=== PATIENT | male | born 1995 | race African-American/Black ===

== ENCOUNTER 2017-05-25 10:06 | Emergency (ER) | payer OTHER ==
[~2017-05-25] VITALS: Ht 185.4 cm; Wt 117.0 kg
[2017-05-25 10:49] VITALS: BP 147/85
[2017-05-25] MEDS ORDERED: KETOROLAC TROMETH 60MG/2ML VIAL IM ONE (11:30)
== END 2017-05-25 12:49 | disposition home or self-care (01) ==
LOC: ER 10:22
DX: S29.012A Strain of muscle and tendon of back wall of thorax, initial encounter (principal); S39.012A Strain of muscle, fascia and tendon of lower back, initial encounter; W19.XXXA Unspecified fall, initial encounter; Y93.89 Activity, other specified; Y92.89 Other specified places as the place of occurrence of the external cause; Y99.8 Other external cause status
CPT/HCPCS: 72070; 72100; 96372; 99284; J1885

== ENCOUNTER 2019-05-21 12:25 | Emergency (ER) | payer MEDICAID ==
[~2019-05-21] VITALS: Ht 188 cm; Wt 120.2 kg
[2019-05-21] MEDS ORDERED: LIDOCAINE 2% JELLY 11ml (GLYDO) UR ONE (13:45)
[2019-05-21 15:49] LABS: Urine Bacteria NONE SEEN /hpf (None Seen); Urine Blood Negative /uL (Negative); Urine Specific Gravity 1.016 (1.001-1.035); Urine WBC <1 /hpf (0 - 3)
[2019-05-21 16:00] VITALS: BP 148/101
== END 2019-05-21 15:51 | disposition home or self-care (01) ==
LOC: MERGE 12:25 → ER 12:25
DX: N39.0 Urinary tract infection, site not specified (principal); R33.9 Retention of urine, unspecified
CPT/HCPCS: 81001

== ENCOUNTER 2019-07-23 14:23 | Emergency (ER) | payer MEDICAID ==
[~2019-07-23] VITALS: Ht 188 cm; Wt 113.4 kg
[2019-07-23 15:41] VITALS: BP 131/89
[2019-07-23] MEDS ORDERED: ENOXAPARIN SOD 100 MG/1 ML SYRINGE SC ONE (16:15)
== END 2019-07-23 19:20 | disposition home or self-care (01) ==
LOC: ER 14:31
DX: I82.412 Acute embolism and thrombosis of left femoral vein (principal)
CPT/HCPCS: 93971; 96372; 99284; J1650

== ENCOUNTER 2019-07-26 13:02 | Inpatient (IN) | payer MEDICAID ==
[~2019-07-26] VITALS: Ht 188 cm; Wt 126.7 kg
[2019-07-26] MEDS ORDERED: SODIUM CHLORIDE 0.9% 1,000 ML IV ONE ×2 (15:24)
[2019-07-26 16:00] LABS: Basophils # (auto) 0 uL; Basophils % (auto) 0.5 % (0.0-2.0); Eosinophils # (auto) 0 uL; Lymphocytes # (auto) 1.4 uL; Monocytes # (auto) 0.5 uL
[2019-07-26 16:01] LABS: Eosinophils % (auto) 0.7 % (0.0-7.0); Hematocrit 48.7 % (41.0-53.0); Hemoglobin 16.2 g/dL (13.5-17.5); Lymphocytes % (auto) 23.5 % (10.0-50.0); Mean Corpuscular Hemoglobin 27.6 pg (28.0-32.0); Mean Corpuscular Hgb Conc. 33.3 g/dL (32.0-36.0); Monocytes % (auto) 8.1 % (0.0-12.0); Neutrophils # (auto) 4.1 uL; Neutrophils % (auto) 67.2 % (37.0-80.0); Nucleated Red Blood Cells % 0.1 %; Platelet Count (auto) 236 10^3/uL (140-450); Red Blood Cells 5.86 10^6/uL (4.5-5.90); Red Cell Distribution Width 14.4 % (11.8-14.3)
[2019-07-26 16:19] LABS: Alanine Aminotransferase 74 U/L (16-61); Albumin 3.7 g/dL (3.4-5.0); Anion Gap 7 (5-15); Aspartate Aminotransferase 33 U/L (15-37); BUN/Creatinine Ratio 12.9; Blood Urea Nitrogen 15 mg/dL (7-18); Calcium 8.7 mg/dL (8.5-10.1); Carbon Dioxide 23 mmol/L (21-32); Chloride 110 mmol/L (98-107); GFR African American 99 mL/min; GFR Non-African American 82 mL/min; Glucose 88 mg/dL (74-106); Sodium 140 mmol/L (136-145)
[2019-07-26 16:24] LABS: Alkaline Phosphatase 83 U/L (45-117); Bilirubin, Total 0.4 mg/dL (0.2-1.0); Total Protein 7.3 g/dL (6.4-8.2)
[2019-07-26] MEDS ORDERED: ENOXAPARIN SOD 120 MG/0.8 ML SYRINGE SC ONE (16:30)
[2019-07-26] MEDS ORDERED: IOHEXOL 350 MG/ML 100ML IJ ONE (16:40)
[2019-07-26 18:54] LABS: Urine Bacteria NONE SEEN /hpf (None Seen); Urine Blood Negative /uL (Negative); Urine WBC 1 /hpf (0 - 3)
[2019-07-26 19:07] LABS: Urine Specific Gravity > 1.050 (1.001-1.035)
[2019-07-26] MEDS ORDERED: NITROGLYCERIN 0.4 MG SL TAB SL PRN (20:00)
[2019-07-26] MEDS ORDERED: TEMAZEPAM 15 MG CAP PO PRN (20:00)
[2019-07-26] MEDS ORDERED: PROMETHAZINE HCL 25 MG/ML 1ML IV PRN (20:00)
[2019-07-26] MEDS ORDERED: LACTULOSE 20Gm/30ML SOLN PO PRN (20:00)
[2019-07-26] MEDS ORDERED: ACETAMINOPHEN 500 MG TAB PO PRN (20:00)
[2019-07-26] MEDS ORDERED: traMADol HCL 50 MG TAB PO PRN (20:00)
[2019-07-26] MEDS ORDERED: MORPHINE SULF INJ 2 MG/ML SYRINGE 1ML IV PRN (20:00)
[2019-07-26 22:00] VITALS: BP 138/86
[2019-07-26] MEDS ORDERED: RIV20T PO (22:43)
[2019-07-27] MEDS ORDERED: ENOXAPARIN SOD 60 MG/0.6 ML SYRINGE SC SCH (04:30)
[2019-07-27 05:00] VITALS: BP 134/71
[2019-07-27 08:00] VITALS: BP 153/94
[2019-07-27 08:49] VITALS: BP 153/94
[2019-07-27 11:53] VITALS: BP 153/94
== END 2019-07-27 12:30 | disposition home or self-care (01) | DRG 197 ==
LOC: ER 13:02 → TELE 13:03 → TELE-WESTW 21:18
PROVIDERS: ADMIT Internal Medicine; ATTEND Internal Medicine
DX: I82.412 Acute embolism and thrombosis of left femoral vein (principal); E66.9 Obesity, unspecified; I10 Essential (primary) hypertension; I82.402 Acute embolism and thrombosis of unspecified deep veins of left lower extremity; Z85.9 Personal history of malignant neoplasm, unspecified; Z68.35 Body mass index [BMI] 35.0-35.9, adult
CPT/HCPCS: 36415; 71046; 71275; 80053; 81001; 81241; 84484; 85025; 85302; 85305; 85306; 85613; 85670; 85705; 85732; 93970; 96360; 96372; G0378

== ENCOUNTER 2023-04-13 23:53 | Emergency (ER) | payer MEDICAID ==
[~2023-04-13] VITALS: Ht 188 cm; Wt 133.0 kg
[~2023-04-13 23:53] MED LIST: RIV20T PO
[2023-04-14 00:57] VITALS: BP 146/95; PULSE 68; RESP 18; O2SAT 98
== END 2023-04-14 04:33 | disposition left against medical advice (07) ==
LOC: ER 23:53
DX: Z76.0 Encounter for issue of repeat prescription (principal); Z53.21 Procedure and treatment not carried out due to patient leaving prior to being seen by health care provider

== ENCOUNTER 2023-06-18 08:56 | Emergency (ER) | payer MEDICAID ==
[~2023-06-18] VITALS: Ht 188 cm; Wt 129.0 kg
[2023-06-18 10:03] LABS: Basophils # (auto) 0 10 ^3/uL (0-0.2); Eosinophils # (auto) 0 10 ^3/uL (0-0.8); Eosinophils % (auto) 0.1 % (0.0-7.0); Hemoglobin 17.2 g/dL (13.5-17.5); Lymphocytes # (auto) 0.5 10 ^3/uL (0.4-5.4); Monocytes % (auto) 6.1 % (0.0-12.0); Neutrophils % (auto) 87.4 % (37.0-80.0); Red Cell Distribution Width 14.7 % (11.8-14.3)
[2023-06-18 10:07] LABS: Basophils % (auto) 0.2 % (0.0-2.0); Hematocrit 51.7 % (41.0-53.0); Lymphocytes % (auto) 6.2 % (10.0-50.0); Mean Corpuscular Hemoglobin 27.5 pg (28.0-32.0); Mean Corpuscular Hgb Conc. 33.3 g/dL (32.0-36.0); Mean Corpuscular Volume 82.8 fL (80.0-100.0); Monocytes # (auto) 0.4 10 ^3/uL (0-1.3); Neutrophils # (auto) 6.4 10 ^3/uL (1.6-8.6); Nucleated Red Blood Cells % 0.1 %; Red Blood Cells 6.24 10^6/uL (4.5-5.90); White Blood Cell 7.3 10^3/uL (4.4-10.8)
[2023-06-18 10:10] LABS: Chloride 103 mmol/L (98-107); Potassium 3.5 mmol/L (3.5-5.1); Sodium 136 mmol/L (136-145)
[2023-06-18 10:11] LABS: Anion Gap 10 (5-15); Carbon Dioxide 23 mmol/L (20-30)
[2023-06-18 10:12] LABS: Calcium 9.7 mg/dL (8.5-10.1)
[2023-06-18 10:16] LABS: BUN/Creatinine Ratio 7.4 (10.0-20.0); Blood Urea Nitrogen 9 mg/dL (9-23); Glucose 141 mg/dL (74-106)
[2023-06-18] MEDS ORDERED: HYDROcodone-ACET 10/325MG TAB PO ONE (10:30)
[2023-06-18] MEDS ORDERED: METR-344 PO (10:42)
[2023-06-18] MEDS ORDERED: SODIUM CHLORIDE 0.9% 1,000 ML IV ONE (10:45)
[2023-06-18] MEDS ORDERED: cefTRIAXone 1GM/50ML D5W 50 ML IV ONE (10:45)
[2023-06-18] MEDS ORDERED: metroNIDAZOLE 500MG/100ML 100 ML IV ONE (10:45)
[2023-06-18] MEDS ORDERED: KETOROLAC TROMETH 30 MG/ML 1ML VIAL IV ONE (11:15)
[2023-06-18 12:17] VITALS: BP 152/97; PULSE 79; RESP 18; TEMP 98; O2SAT 97
== END 2023-06-18 12:18 | disposition home or self-care (01) ==
LOC: ER 08:56
DX: K52.9 Noninfective gastroenteritis and colitis, unspecified (principal)
CPT/HCPCS: 36415; 74018; 80048; 85025; 96365; 96368; 96375; 99284; J0696; J1885; J3490; J7030

== ENCOUNTER 2023-07-04 22:29 | Emergency (ER) | payer MEDICAID ==
[~2023-07-04] VITALS: Ht 188 cm; Wt 129.1 kg
[~2023-07-04 22:29] MED LIST changes: +METR-344 PO
[2023-07-04 22:40] VITALS: BP 128/69; PULSE 60; RESP 18; TEMP 98; O2SAT 98
== END 2023-07-05 00:14 | disposition home or self-care (01) ==
LOC: ER 22:29
DX: R51.9 Headache, unspecified (principal)

== ENCOUNTER 2023-07-21 13:13 | Emergency (ER) | payer MEDICAID ==
[~2023-07-21] VITALS: Ht 188 cm; Wt 130.3 kg
[2023-07-21 14:18] VITALS: BP 110/75; PULSE 91; RESP 16; TEMP 98.9; O2SAT 96
[2023-07-21] MEDS ORDERED: BENZ100C97 PO (15:58)
[2023-07-21] MEDS ORDERED: GUAISYP6 PO (16:11)
[2023-07-21] MEDS ORDERED: OSEL75CA5 PO (16:11)
[2023-07-21 17:09] LABS: COVID19 ANTIGEN SOFIA FIA NEGATIVE (NEGATIVE)
[2023-07-21 17:10] LABS: Rapid Influenza A Negative (Negative); Rapid Influenza B Negative (Negative)
== END 2023-07-21 16:16 | disposition home or self-care (01) ==
LOC: ER 13:13
DX: J06.9 Acute upper respiratory infection, unspecified (principal); I10 Essential (primary) hypertension; Z20.822 Contact with and (suspected) exposure to COVID-19
CPT/HCPCS: 36415; 87426; 87804

== ENCOUNTER 2024-08-03 15:55 | Emergency (ER) | payer MEDICAID ==
[~2024-08-03] VITALS: Ht 188 cm; Wt 132.9 kg
[~2024-08-03 15:55] MED LIST changes: +BENZ100C97 PO; +OSEL75CA5 PO
--- NOTE | 2024-08-03 16:52 | DVH ---
Left lower extremity venous duplex Clinical History: pain Comparison: L VENOUS DVT LTD UNILATERAL on DOS: 07/23/19 Findings: Duplex Doppler evaluation of the deep venous system of the left lower extremity from the common femor al vein to the popliteal vein including color Doppler and spectral/pulsed waveform analysis was perfo rmed. The common femoral vein demonstrates appropriate compressibility and waveform variability. There is compressibility/patency of the great saphenous vein at the proximal thigh. The femoral vein demonstrates appropriate compressibility and waveform variability. The deep femoral vein demonstrates appropriate compressibility and waveform variability. Thrombus in the popliteal vein extending to the posterior tibial vein. Impression: Left lower extremity DVT. Critical findings discussed with Dr. Menchaca at the time of dictation. If clinical concern/symptoms persist or worsen, short-interval follow-up study is suggested.
[2024-08-03] MEDS ORDERED: RIVA15TA PO (16:56)
--- NOTE | 2024-08-03 16:58 | ED.PDOC ---
Musculoskeletal HPI Comments 29-year-old male complaining of left lower leg pain. Patient reports a history of DVTs. States he just recently returned from a long drive from [place] to [place]. [facility] he did try to get up and move his foot and legs when he could. [facility] he had DVT last year and then he went through thrombectomy on the left side. [facility] he stopped taking Xarelto per directed by his doctor last year. Patient denies any chest pain no shortness a breath. Chief Complaint: Lower Extremity Time Seen by MD: 16:06 Primary Care Provider: OOA Reviewed Notes: Nurses Notes Allergies: Coded Allergies: No Known Drug Allergy (Verified Allergy, Unknown, 07/26/19) Uncoded Allergies: UNKNOWN ANTIBIOTIC (Allergy, Unknown, 04/14/23) Home Meds Active Scripts Oseltamivir Phosphate (Tamiflu) 75 Mg Cap, 1 CAP PO BID for 5 Days, #10 CAP Prov:IVETTE SYKES 07/21/23 Benzonatate (Benzonatate) 100 Mg Cap, 1 CAP PO TID PRN, #30 CAP Prov:IVETTE SYKES 07/21/23 Metronidazole (Flagyl) 500 Mg Tab, 1 TAB PO TID for 7 Days, #21 TAB Prov:QUYNH CARBAJAL MD 06/18/23 Reported Medications Rivaroxaban (Xarelto Tablet) 20 Mg Tb, 20 MG PO BID, TAB 07/26/19 Information Source: Patient Mode of Arrival: Ambulatory Location: Left Past Medical History PAST MEDICAL HISTORY: HTN Surgical History: Denies all surgeries Family History Family History: Reviewed,noncontributory to illness Social History Smoker: Non-Smoker Alcohol: Denies ETOH Use Drugs: Denies Drug Use Lives In: Home Constitutional: denies: chills, diaphoresis, fatigue, fever, malaise, sweats, weakness, others EENTM: denies: blurred vision, double vision, ear bleeding, ear discharge, ear drainage, ear pain, ear ringing, eye pain, eye redness, hearing loss, mouth pain, mouth swelling, nasal discharge, nose bleeding, nose congestion, nose pain, photophobia, tearing, throat pain, throat swelling, voice changes, others Respiratory: denies: cough, hemoptysis, orthopnea, SOB at rest, shortness of breath, SOB with excertion, stridor, wheezing, others Cardiovascular: denies: chest pain, dizzy spells, diaphoresis, Dyspnea on exertion, edema, irregular heart beat, left arm pain, lightheadedness, palpitations, PND, syncope, others Gastrointestinal: denies: abdomen distended, abdominal pain, blood streaked bowels, constipated, diarrhea, dysphagia, difficulty swallowing, hematemesis, melena, nausea, poor appetite, poor fluid intake, rectal bleeding, rectal pain, vomiting, others Genitourinary: denies: burning, dysuria, flank pain, frequency, hematuria, incontinence, penile discharge, penile sore, pain, testicle pain, testicle swelling, urgency, others Neurological: denies: dizziness, fainting, headache, left sided numbness, left sided weakness, numbness, paresthesia, pre-existing deficit, right sided num bness, right sided weakness, seizure, speech problems, tingling, tremors, weakness, others Musculoskeletal: reports: muscle pain, muscle stiffness; denies: back pain, gout, joint pain, joint swelling, neck pain, others Integumetry: denies: bruises, change in color, change in hair/nails, dryness, l aceration, lesions, lumps, rash, wounds, others Allergic/Immunocompromised: denies: Difficulty Healing, Frequent Infections, Hives, Itching, others Hematologic/Lymphatic: denies: anemia, blood clots, easy bleeding, easy bruising, swollen glands, others Physical Exam General Appearance: No Apparent Distress, Normal HEENT: Normal ENT Inspection, Pharynx Normal, TMs Normal Neck: Full Range of Motion, Non-Tender, Normal, Normal Inspection Respiratory: Chest Non-Tender, Lungs Clear, No Accessory Muscle Use, No Respiratory Distress, Normal Breath Sounds Cardiovascular: No Edema, No JVD, No Murmur, No Gallop, Normal Peripheral Pulses, Regular Rate/Rhythm Breast Exam: Deferred Gastrointestinal: No Organomegaly, Non Tender, No Pulsatile Mass, Normal Bowel Sounds, Soft Genitalia: Deferred Pelvic: Deferred Rectal: Deferred Extremities: No calf tenderness, Normal capillary refill, No pedal edema, Swelling (Swelling noted left lower extremity, distal pulse not present. Patient reports tenderness to palpation over the left calf.) Musculoskeletal : Apperance: Normal Neurologic: Alert, emergency operator II-XII nml as Tested, No Motor Deficits, Normal Affect, Normal Mood, No Sensory Deficits Cerebellar Function: Normal Reflexes: Normal Skin: Dry, Normal Color, Warm Lymphatic: No Adenopathy Was a procedure done? Was a procedure done?: No Differential Diagnosis EXT Differential Diagnosis: Deep Vein Thrombosis, Compartment Syndrome, Fracture, Sprain, Dislocation X-Ray, Labs, Meds, VS Vital Signs Date Time Temp Pulse Resp B/P (MAP) Pulse Ox O2 Delivery O2 Flow Rate FiO2 08/03/24 16:07 98.7 74 18 159/101 (120) 95 157/96 (116) X-Ray, Labs, Meds, VS Comment Imaging: X-rays and CT scans were reviewed and interpreted by this provider, imaging shows no fractures and no pathological disease. Pending radiology review. Ultrasound: DVT noted in the left popliteal and trifurcation of left lower extremity Laboratory: Labs reviewed and interpreted by this provider. No significant abnormalities noted. Patient has prior medical visits reviewed. Med reconciliation performed Vital signs reviewed Time of 1ST Reevaluation: 16:58 Reevaluation 1ST: Improved Patient Education/Counseling: Diagnosis, Treatment, Need For Follow Up (Patient advised to follow-up in the emergency room in the next 24 to 48 hours if symptoms do not improve. Advised follow-up with PCP in the next 3 to 5 days. Patient verbalized understanding. ) Family Education/Counseling: Diagnosis Departure 1 Departure Time of Disposition: 16:54 Impression: Primary Impression: DVT (deep venous thrombosis) Qualified Codes: I82.4Z2 - Acute embolism and thrombosis of unspecified deep veins of left distal lower extremity Disposition: 01 HOME / SELF CARE / HOMELESS Condition: Fair e-Prescriptions Rivaroxaban (XARELTO) 15 Mg Tab 15 MG PO BID for 30 Days, #60 TAB Prov: ARTEM PEREZ 08/03/24 Discharged With: Self Critical Care Note Critical Care Time?: No Stability Stability form required: No Heart Score Heart Score: Heart Score Response (Comments) Value History N/A 0 EKG N/A 0 Age N/A 0 Risk Factors N/A 0 Troponin N/A 0 Total 0 ARTEM PEREZ Aug 03, 2024 16:58
[2024-08-03 17:22] VITALS: BP 151/104; PULSE 68; RESP 17; TEMP 97.7; O2SAT 98
== END 2024-08-03 17:27 | disposition home or self-care (01) ==
LOC: ER 15:55
DX: I82.4Z2 Acute embolism and thrombosis of unspecified deep veins of left distal lower extremity (principal); I10 Essential (primary) hypertension; Z79.01 Long term (current) use of anticoagulants; Z79.899 Other long term (current) drug therapy
CPT/HCPCS: 93971

== ENCOUNTER 2024-12-16 00:42 | Emergency (ER) | payer MEDICAID ==
[~2024-12-16] VITALS: Ht 188 cm; Wt 134.0 kg
[~2024-12-16 00:42] MED LIST changes: +RIVA15TA PO
[2024-12-16] MEDS ORDERED: ACET500T58 PO (01:03)
--- NOTE | 2024-12-16 01:04 | ED.PDOC ---
HPI (NEURO) HPI Comments 29 year old male presents to ER with complaints of headache x 1 day. Patient with PMH significant for HTN states he started experiencing 7/10 frontal headache at 7 p.m. prior to arrival to ER while driving. He notes he thought his headache was related to his blood pressure, denying checking his blood pressure prior to arrival to ER. Patient presents to ER alert and oriented x4, with steady gait, in no distress with blood pressure 134/94 and notes he did take his prescribed blood pressure medications at onset of symptoms. Denies n/v, numbness/tingling, dizziness, vision changes, head injury, extremity weakness, fever, runny nose, shortness of breath, chest pain or any further symptoms/complaints Time Seen by MD: 00:48 Primary Care Provider: ANGELO Reviewed Notes: Nurses Notes, Medications, Allergies Information Source: Patient Past Medical History PAST MEDICAL HISTORY: HTN Past Medical History (Other): DVT Surgical History: Denies all surgeries Family History Family History: Unknown Social History Smoker: Non-Smoker Alcohol: Denies ETOH Use Drugs: Denies Drug Use Lives In: Home Constitutional: denies: chills, diaphoresis, fatigue, fever, malaise, sweats, weakness, others EENTM: denies: blurred vision, double vision, ear bleeding, ear discharge, ear drainage, ear pain, ear ringing, eye pain, eye redness, hearing loss, mouth pain, mouth swelling, nasal discharge, nose bleeding, nose congestion, nose pain, photophobia, tearing, throat pain, throat swelling, voice changes, others Respiratory: denies: cough, hemoptysis, orthopnea, SOB at rest, shortness of breath, SOB with excertion, stridor, wheezing, others Cardiovascular: denies: chest pain, dizzy spells, diaphoresis, Dyspnea on exertion, edema, irregular heart beat, left arm pain, lightheadedness, palpitations, PND, syncope, others Gastrointestinal: denies: abdomen distended, abdominal pain, blood streaked bowels, constipated, diarrhea, dysphagia, difficulty swallowing, hematemesis, melena, nausea, poor appetite, poor fluid intake, rectal bleeding, rectal pain, vomiting, others Genitourinary: denies: burning, dysuria, flank pain, frequency, hematuria, incontinence, penile discharge, penile sore, pain, testicle pain, testicle swelling, urgency, others Neurological: reports: others (As stated in HPI) Musculoskeletal: denies: back pain, gout, joint pain, joint swelling, muscle pain, muscle stiffness, neck pain, others Integumetry: denies: bruises, change in color, change in hair/nails, dryness, laceration, lesions, lumps, rash, wounds, others Allergic/Immunocompromised: denies: Difficulty Healing, Frequent Infections, Hives, Itching, others Hematologic/Lymphatic: denies: anemia, blood clots, easy bleeding, easy br uising, swollen glands, others Endocrine: denies: excessive hunger, excessive sweating, excessive thirst, excessive urination, flushing, intolerance to cold, intolerance to heat, unexplained weight gain, unexplained weight loss, others Psychiatric: denies: anxiety, bipolar disorder, depression, hopeless, panic disorder, schizophrenia, sleepless, suicidal, others Physical Exam General Appearance: No Apparent Distress, Obese HEENT: Normal ENT Inspection, PERRL/EOMI, Pharynx Normal, TMs Normal Neck: Full Range of Motion, Non-Tender, Normal Respiratory: Chest Non-Tender, Lungs Clear, No Accessory Muscle Use, No Respiratory Distress, Normal Breath Sounds Cardiovascular: No Murmur, No Gallop, Regular Rate/Rhythm Breast Exam: Deferred Gastrointestinal: NOT DONE Genitalia: Deferred Pelvic: Deferred Rectal: Deferred Extremities: Normal capillary refill, Normal range of motion Neurologic: Alert, home health aid II-XII nml as Tested, No Motor Deficits, Normal Affect, Normal Mood, No Sensory Deficits Cerebellar Function: Normal Reflexes: Normal Skin: Dry, Normal Color, Warm Lymphatic: No Adenopathy Was a procedure done? Was a procedure done?: No Sedation Sedation?: No Differential Diagnosis (SZ) Headache: Closed Head Injury, Subarachnoid Hemorrhage, Subdural Hemorrhage, Mass Lesion, Other (Hypertensive emergency) X-Ray, Labs, Meds, VS Vital Signs Date Time Temp Pulse Resp B/P (MAP) Pulse Ox O2 Delivery O2 Flow Rate FiO2 12/16/24 01:10 98.0 85 18 134/94 (107) 97 98.0 12/16/24 01:10 85 18 97 Room Air* 0 21 12/16/24 00:55 98.0 85 18 134/94 (107) 97 98.0 Neurological examination-unremarkable Patient had improvement in symptoms and in no distress prior to discharge Advised to monitor/record blood pressure readings closely at home Advised to continue blood pressure medications as prescribed Advised to follow up with PCP in 1-2 days Patient alert and oriented x4 prior to discharge. Patient verbalized understanding and agreeable with current plan of care Advised to return to ER immediately if symptoms worsen Time of 1ST Reevaluation: 00:44 Reevaluation 1ST: N/A Patient Education/Counseling: Diagnosis, Treatment, Prognosis, Need For Follow Up Family Education/Counseling: No Family Present Departure 1 Departure Time of Disposition: 01:02 Impression: Primary Impression: Tension headache Disposition: 01 HOME / SELF CARE / HOMELESS Condition: Stable e-Prescriptions Acetaminophen (Acetaminophen) 500 Mg Tab 500 MG PO Q4HPRN, #30 TAB 0 Refills Prov: BHUMI STALLINGS 12/16/24 Discharged With: Self Critical Care Note Critical Care Time?: No Stability Stability form required: No Heart Score Heart Score: Heart Score Response (Comments) Value History N/A 0 EKG N/A 0 Age N/A 0 Risk Factors N/A 0 Troponin N/A 0 Total 0 BHUMI STALLINGS Dec 16, 2024 01:04
[2024-12-16 01:10] VITALS: BP 134/94; PULSE 85; RESP 18; TEMP 98; O2SAT 97
== END 2024-12-16 01:22 | disposition home or self-care (01) ==
LOC: ER 00:42
DX: G44.209 Tension-type headache, unspecified, not intractable (principal); I10 Essential (primary) hypertension; Z86.718 Personal history of other venous thrombosis and embolism

== ENCOUNTER 2025-03-31 11:09 | Emergency (ER) | payer MEDICAID ==
[~2025-03-31] VITALS: Ht 190.5 cm; Wt 134.9 kg
[~2025-03-31 11:09] MED LIST changes: +ACET500T58 PO
[2025-03-31] MEDS ORDERED: RIV20T PO (12:26)
--- NOTE | 2025-03-31 12:32 | ED.PDOC ---
History of Present Illness HPI Comments A 30 YEAR OLD MALE PRESENTS TO THE ED WITH COMPLAINT OF MED REFILL. PT HAS HISTORY OF DVT AND IS CURRENTLY ON XARELTO 20 MG BID. PT STATES HE RAN OUT OF MEDICATION 3X DAYS AND NEEDS REFILL UNTIL HE CAN SEE HIS PCP. PATIENT DENIES FEVER, CHILLS, SHORTNESS OF BREATH, CHEST PAIN, ABDOMINAL PAIN, NAUSEA, VOMITI NG, HEADACHE, OR OTHER COMPLAINTS. NO OTHER SYMPTOMS OR MODIFYING FACTORS AT THIS TIME. PATIENT IS ALERT, ORIENTED X 4, AND HAS STEADY GAIT. Chief Complaint: Lower Extremity Time Seen by MD: 12:27 Primary Care Provider: OOA Reviewed Notes: Nurses Notes, Medications, Allergies Allergies: Coded Allergies: No Known Drug Allergy (Verified Allergy, Unknown, 07/26/19) Uncoded Allergies: UNKNOWN ANTIBIOTIC (Allergy, Unknown, 04/14/23) Home Meds Active Scripts Rivaroxaban (Xarelto Tablet) 20 Mg Tb, 20 MG PO BID, #40 TAB Prov:ERIN DOMINGUEZ 03/31/25 Acetaminophen (Acetaminophen) 500 Mg Tab, 500 MG PO Q4HPRN, #30 TAB 0 Refills Prov:BHUMI STALLINGS 12/16/24 Rivaroxaban (XARELTO) 15 Mg Tab, 15 MG PO BID for 30 Days, #60 TAB Prov:ARTEM PEREZ [facility] 08/03/24 Oseltamivir Phosphate (Tamiflu) 75 Mg Cap, 1 CAP PO BID for 5 Days, #10 CAP Prov:IVETTE SYKES [employer] 07/21/23 Benzonatate (Benzonatate) 100 Mg Cap, 1 CAP PO TID PRN, #30 CAP Prov:IVETTE SYKES [facility] 07/21/23 Metronidazole (Flagyl) 500 Mg Tab, 1 TAB PO TID for 7 Days, #21 TAB Prov:QUYNH CARBAJAL MD 06/18/23 Information Source: Patient Mode of Arrival: Ambulatory Severity: Mild, Moderate Timing: Hours Duration: Since onset Medication Refill: Ran out of Medication, For: Other (HX OF DVT ) Past Medical History PAST MEDICAL HISTORY: HTN Past Medical History (Other): DVT Surgical History: Denies all surgeries Family History Family History: Unknown Social History Smoker: Non-Smoker Alcohol: Denies ETOH Use Drugs: Denies Drug Use Lives In: Home Constitutional: denies: chills, diaphoresis, fatigue, fever, malaise, sweats, weakness, others EENTM: denies: blurred vision, double vision, ear bleeding, ear discharge, ear drainage, ear pain, ear ringing, eye pain, eye redness, hearing loss, mouth pain, mouth swelling, nasal discharge, nose bleeding, nose congestion, nose pain, photophobia, tearing, throat pain, throat swelling, voice changes, others Respiratory: denies: cough, hemoptysis, orthopnea, SOB at rest, shortness of breath, SOB with excertion, stridor, wheezing, others Cardiovascular: denies: chest pain, dizzy spells, diaphoresis, Dyspnea on exertion, edema, irregular heart beat, left arm pain, lightheadedness, palpitations, PND, syncope, others Gastrointestinal: denies: abdomen distended, abdominal pain, blood streaked bowels, constipated, diarrhea, dysphagia, difficulty swallowing, hematemesis, melena, nausea, poor appetite, poor fluid intake, rectal bleeding, rectal pain, vomiting, others Genitourinary: denies: burning, dysuria, flank pain, frequency, hematuria, incontinence, penile discharge, penile sore, pain, testicle pain, testicle swelling, urgency, others Neurological: denies: dizziness, fainting, headache, left sided numbness, left sided weakness, numbness, paresthesia, pre-existing deficit, right sided numbne ss, right sided weakness, seizure, speech problems, tingling, tremors, weakness, others Musculoskeletal: denies: back pain, gout, joint pain, joint swelling, muscle pain, muscle stiffness, neck pain, others Integumetry: denies: bruises, change in color, change in hair/nails, dryness, laceration, lesions, lumps, rash, wounds, others Allergic/Immunocompromised: denies: Difficulty Healing, Frequent Infections, Hives, Itching, others Hematologic/Lymphatic: denies: anemia, blood clots, easy bleeding, easy bruising, swollen glands, others Endocrine: denies: excessive hunger, excessive sweating, excessive thirst, excessive urination, flushing, intolerance to cold, intolerance to heat, unexplained weight gain, unexplained weight loss, others Psychiatric: denies: anxiety, bipolar disorder, depression, hopeless, panic disorder, schizophrenia, sleepless, suicidal, others All Other Systems: Reviewed and Negative Physical Exam General Appearance: No Apparent Distress, Normal HEENT: Normal ENT Inspection, PERRL/EOMI, Pharynx Normal, TMs Normal Neck: Full Range of Motion, Non-Tender, Normal, Normal Inspection Respiratory: Chest Non-Tender, Lungs Clear, No Accessory Muscle Use, No Respiratory Distress, Normal Breath Sounds Cardiovascular: No Edema, No JVD, No Murmur, No Gallop, Normal Peripheral Pulses, Regular Rate/Rhythm Breast Exam: Deferred Gastrointestinal: No Organomegaly, Non Tender, No Pulsatile Mass, Normal Bowel Sounds, Soft Genitalia: Deferred Pelvic: Deferred Rectal: Deferred Extremities: No calf tenderness, Normal capillary refill, Normal inspection, Normal range of motion, Non-tender, No pedal edema Musculoskeletal : Apperance: Normal Neurologic: Alert, black oxide operator II-XII nml as Tested, No Motor Deficits, Normal Affect, Normal Mood, No Sensory Deficits Cerebellar Function: Normal Reflexes: Normal Skin: Dry, Normal Color, Warm Peripheral Pulses: 2+ carotid (R), 2+ carotid (L) Lymphatic: No Adenopathy Was a procedure done? Was a procedure done?: No Differential Dx Considerations may include: MED REFILL, HX OF DVT X-Ray, Labs, Meds, VS Vital Signs Date Time Temp Pulse Resp B/P (MAP) Pulse Ox O2 Delivery O2 Flow Rate FiO2 03/31/25 11:10 99.1 70 18 148/96 97 99.1 X-Ray, Labs, Meds, VS Comment COURSE: EXTERNAL MEDICAL RECORDS REVIEWED: [NONE] INDEPENDENT HISTORIANS: [NONE] SOCIAL DETERMINANTS OF HEALTH: [NONE] LABS ORDERED: NONE REVIEWED AND INTERPRETED RESULTS: NONE IMAGING ORDERED: NONE TREATMENTS ORDERED: PROCEDURES PERFORMED: NONE CRITICAL CARE TIME: NONE I HAVE DISCUSSED THE PATIENT WITH THE ATTENDING PHYSICIAN, DR. SKAGGS, HE AGREES WITH THE PATIENT'S PLAN OF CARE AND DISPOSITION. BASED ON HISTORY OF PRESENT ILLNESS, AND PHYSICAL EXAM, PATIENT WILL BE DISCHARGED HOME. DISCUSSED PLAN FOR DISCHARGE HOME WITH RX []. MEDICATION WARNINGS GIVEN. SHARED DECISION MAKING: DISCUSSED WITH PATIENT THAT THEIR WORKUP WAS NORMAL. PATIENT INSTRUCTED TO FOLLOW UP WITH PRIMARY CARE PROVIDER IN 1-2 DAYS FOR RE- EVALUATION OF SYMPTOMS. PATIENT VERBALIZES UNDERSTANDING TO RETURN TO ED FOR NEW OR WORSENING SYMPTOMS OR IF FOLLOW UP WITH PCP CANNOT BE OBTAINED. PATIENT FEELS COMFORTABLE GOING HOME AT THIS TIME. ALL QUESTIONS ADDRESSED AT TIME OF DISCHARGE. Time of 1ST Reevaluation: 12:35 Reevaluation 1ST: Improved Patient Education/Counseling: Diagnosis, Treatment, Need For Follow Up Family Education/Counseling: Diagnosis, Treatment, No Family Present Medical Screening: No EMC Exist At This Time SEPSIS Sepsis Screen Date sepsis recognized/suspect: Mar 31, 2025 Time Sepsis recognized/suspect: 1111 Recent Procedure: No On Antibiotic Therapy: No Respiratory Rate >20: No Heart Rate >90: No Temp<36 C (96.8 F) or >38.3 C: No SBP <90 or MAP <65 mmHG: No New Acute Mental Status Change: No Is the patient on CPAP, BIPAP,: No Vital Signs Date Time Temp Pulse Resp B/P (MAP) Pulse Ox O2 Delivery O2 Flow Rate FiO2 03/31/25 11:10 99.1 70 18 148/96 97 99.1 Departure 1 Departure Time of Disposition: 12:36 Impression: Primary Impression: Encounter for medication refill Additional Impression: History of DVT (deep vein thrombosis) Disposition: HOME / SELF CARE / HOMELESS Condition: Stable Additional Instructions: INSTRUCTIONS: FOLLOW-UP WITH PCP IN 1 TO 2 DAYS. TAKE MEDICATIONS PRESCRIBED. RETURN TO ED FOR ANY NEW OR WORSENING SYMPTOMS. e-Prescriptions Rivaroxaban (Xarelto Tablet) 20 Mg Tb 20 MG PO BID, #40 TAB Prov: ERIN DOMINGUEZ 03/31/25 Discharged With: Self Critical Care Note Critical Care Time?: No Stability Stability form required: No Heart Score Heart Score: Heart Score Response (Comments) Value History N/A 0 EKG N/A 0 Age N/A 0 Risk Factors N/A 0 Troponin N/A 0 Total 0 I personally scribed for ERIN DOMINGUEZ ([email or web address]) on 03/31/25 at 12:32. Electronically submitted by Sybil Latham ([email or web address]). ERIN DOMINGUEZ Mar 31, 2025 12:32
[2025-03-31 12:33] VITALS: BP 143/95; PULSE 60; RESP 18; TEMP 98; O2SAT 96
== END 2025-03-31 12:38 | disposition home or self-care (01) ==
LOC: ER 11:09
DX: Z00.8 Encounter for other general examination (principal); Z76.0 Encounter for issue of repeat prescription; I10 Essential (primary) hypertension; Z86.718 Personal history of other venous thrombosis and embolism

== ENCOUNTER 2025-06-01 09:01 | Emergency (ER) | payer MEDICAID ==
[~2025-06-01] VITALS: Ht 188 cm; Wt 132.0 kg
[2025-06-01] MEDS ORDERED: PROM1SOL4 PO (10:09)
[2025-06-01] MEDS ORDERED: GUAI600T78 PO (10:09)
[2025-06-01] MEDS ORDERED: BENZ100C97 PO (10:09)
[2025-06-01 10:10] VITALS: BP 138/90; TEMP 98.1
[2025-06-01 10:13] VITALS: PULSE 73; RESP 16; O2SAT 98
--- NOTE | 2025-06-01 10:17 | ED.PDOC ---
History of Present Illness HPI Comments 30-year-old, obese male presents with a chief complaint of flu-like symptoms. Patient endorses on having a productive cough, with associated chest wall pain, shortness of breath on exertion, intermittent dizziness, and fever, for the past few days. Phlegm is described as dark green in appearance. Patient reports no recent known sick contacts. He has taken Mucinex and honey to manage symptoms to no relief or improvement. Patient is, currently, being evaluated for current left lower extremity DVT (he is on Xarelto, 20 mg) at [facility] every three months, with next appointment in a week from today. Additional history for hypertension. Started productive cough Also with chest wall pain, shortness of breath with exertion, dizziness, and fever Therapies tried: Mucinex and honey COVID-19 exposure: None that they know of COVID testing, none People at home, no known sick contacts Denies chills night sweats unintentional weight loss Denies persistent chest pain, shortness of breath, leg swelling Denies history of asthma nor any breathing conditions Denies history of pneumonia Denies recent international travel Chief Complaint: Flu like Time Seen by MD: 10:00 Primary Care Provider: OOA Reviewed Notes: Nurses Notes, Medications, Allergies Allergies: Coded Allergies: No Known Drug Allergy (Verified Allergy, Unknown, 07/26/19) Uncoded Allergies: UNKNOWN ANTIBIOTIC (Allergy, Unknown, 04/14/23) Home Meds Active Scripts Guaifenesin (Mucinex) 600 Mg Tab, 1 TAB PO BID for 7 Days, #14 TAB 0 Refills Prov:HELENA SOLORZANO NP 06/01/25 Promethazine-Dm (Promethazine Dm 6.25-15 mg/5Ml) 1 Enedina Enedina, 5 ML PO TIDPRN PRN for 10 Days, #150 ML 0 Refills Prov:HELENA SOLORZANO NP 06/01/25 Benzonatate (Benzonatate) 100 Mg Cap, 1 CAP PO TID PRN, #30 CAP Prov:HELENA SOLORZANO NP 06/01/25 Rivaroxaban (Xarelto Tablet) 20 Mg Tb, 20 MG PO BID, #40 TAB Prov:ERIN DOMINGUEZ 03/31/25 Acetaminophen (Acetaminophen) 500 Mg Tab, 500 MG PO Q4HPRN, #30 TAB 0 Refills Prov:BHUMI STALLINGS 12/16/24 Rivaroxaban (XARELTO) 15 Mg Tab, 15 MG PO BID for 30 Days, #60 TAB Prov:ARTEM RUIZ BLANKET CUTTING MACHINE OPERATOR 08/03/24 Oseltamivir Phosphate (Tamiflu) 75 Mg Cap, 1 CAP PO BID for 5 Days, #10 CAP Prov:IVETTE SYKES BLANKET CUTTING MACHINE OPERATOR 07/21/23 Metronidazole (Flagyl) 500 Mg Tab, 1 TAB PO TID for 7 Days, #21 TAB Prov:QUYNH CARBAJAL MD 06/18/23 Information Source: Patient Mode of Arrival: Ambulatory Past Medical History PAST MEDICAL HISTORY: HTN Past Medical History (Other): Left lower extremity DVT-on 20 mg Xarelto Surgical History: Denies all surgeries Family History Family History: Unknown Social History Smoker: Non-Smoker Alcohol: Denies ETOH Use Drugs: Denies Drug Use Lives In: Home All Other Systems: Reviewed and Negative (As per HPI) Physical Exam General Appearance: No Apparent Distress, Obese HEENT: Normal ENT Inspection, Pharynx Normal, TMs Normal Neck: Full Range of Motion, Non-Tender, Normal, Normal Inspection Respiratory: Chest Non-Tender, Lungs Clear, No Accessory Muscle Use, No Respiratory Distress, Normal Breath Sounds Cardiovascular: No Edema, No JVD, No Murmur, No Gallop, Normal Peripheral Pulses, Regular Rate/Rhythm Breast Exam: Deferred Gastrointestinal: No Organomegaly, Non Tender, No Pulsatile Mass, Normal Bowel Sounds, Soft Genitalia: Deferred Pelvic: Deferred Rectal: Deferred Extremities: No calf tenderness, Normal capillary refill, Normal inspection, Normal range of motion, Non-tender, No pedal edema Musculoskeletal : Apperance: Normal Neurologic: Alert, jointer submarine cable II-XII nml as Tested, No Motor Deficits, Normal Affect, Normal Mood, No Sensory Deficits Cerebellar Function: Normal Reflexes: Normal Skin: Dry, Normal Color, Warm Lymphatic: No Adenopathy Was a procedure done? Was a procedure done?: No Differential Dx Considerations may include: Viral bronchitis, URI, pneumonia, viral syndrome, among others X-Ray, Labs, Meds, VS Vital Signs Date Time Temp Pulse Resp B/P (MAP) Pulse Ox O2 Delivery O2 Flow Rate FiO2 06/01/25 10:13 73 16 98 Room Air 06/01/25 10:10 98.1 73 16 138/90 (106) 98 98.1 06/01/25 09:11 98.2 75 16 166/94 92 98.2 X-Ray, Labs, Meds, VS Comment 30-year-old, obese male presents with a chief complaint of flu-like symptoms. Patient arrives alert and oriented, ABC's intact, afebrile, vital signs stable, saturating well in room air The patient is overall well-appearing nontoxic on exam. On physical exam, respirations even and unlabored, clear to auscultation bilaterally. Oxygen stable on room air. Did not have any focal lung findings and therefore chest x-ray was not indicated during this exam Low suspicion of strep pharyngitis given physical exam findings and patient's presenting symptoms No signs of meningismus on exam Overall, the patient is well hydrated and nontoxic. Plan for symptomatic control for fever and pain as needed. The patient was able to tolerate p.o. intake in the ED. at this time, patient is safe for discharge home. The exam findings and plan discussed. We will discharge home with PCP follow up and strict return precautions. Discussed that cough can linger up to 6 weeks after viral URI Supportive care and return precautions discussed Counseled viral infection and explained that antibiotics would not be helpful in resolving the illness sooner. Recommended vitamin C, rest, handwashing, and symptomatic care. Expect 2-week course with possibly of cough lingering up to 6 weeks. Nonpharmacological remedies for fluids has been recommended as well Additional MDM Review of External, Non-ED records: External records reviewed. Discussion with independent historian (EMS, family) history obtained from the patient/parents (if applicable) at bedside Chronic conditions affecting care: None Social determinants of health affecting care: None Consideration of admission (observation or admission): I considered escalation of care to admission for this patient, however given the reassuring workup, the patient is safe for outpatient management. Discussion with the Radiology: No Tests considered but not performed: Prescription medication considered but not given: Time of 1ST Reevaluation: 10:20 Reevaluation 1ST: Unchanged Patient Education/Counseling: Diagnosis, Treatment, Need For Follow Up Family Education/Counseling: No Family Present SEPSIS Sepsis Screen Date sepsis recognized/suspect: Jun 01, 2025 Time Sepsis recognized/suspect: 0911 Recent Procedure: No On Antibiotic Therapy: No Respiratory Rate >20: No Heart Rate >90: No Temp<36 C (96.8 F) or >38.3 C: No SBP <90 or MAP <65 mmHG: No New Acute Mental Status Change: No Is the patient on CPAP, BIPAP,: No Vital Signs Date Time Temp Pulse Resp B/P (MAP) Pulse Ox O2 Delivery O2 Flow Rate FiO2 06/01/25 10:13 73 16 98 Room Air 06/01/25 10:10 98.1 73 16 138/90 (106) 98 98.1 06/01/25 09:11 98.2 75 16 166/94 92 98.2 Departure 1 Departure Time of Disposition: 10:20 Impression: Primary Impression: Viral bronchitis Disposition: HOME / SELF CARE / HOMELESS Condition: Stable e-Prescriptions Guaifenesin (Mucinex) 600 Mg Tab 1 TAB PO BID for 7 Days, #14 TAB 0 Refills Prov: HELENA SOLORZANO NP 06/01/25 Promethazine-Dm (Promethazine Dm 6.25-15 mg/5Ml) 1 Enedina Enedina 5 ML PO TIDPRN PRN for 10 Days, #150 ML 0 Refills Prov: HELENA SOLORZANO NP 06/01/25 Benzonatate (Benzonatate) 100 Mg Cap 1 CAP PO TID PRN, #30 CAP Prov: HELENA SOLORZANO NP 06/01/25 Discharged With: Self Critical Care Note Critical Care Time?: No Stability Stability form required: No Heart Score Heart Score: Heart Score Response (Comments) Value History N/A 0 EKG N/A 0 Age N/A 0 Risk Factors N/A 0 Troponin N/A 0 Total 0 I personally scribed for HELENA SOLOZRANO NP ([email or web address]) on 06/01/25 at 10:17. Electronically submitted by Cal Read ([email or web address]). HELENA SOLORZANO NP Jun 01, 2025 10:17
== END 2025-06-01 10:30 | disposition home or self-care (01) ==
LOC: ER 09:01
DX: J20.8 Acute bronchitis due to other specified organisms (principal); I10 Essential (primary) hypertension; Z79.899 Other long term (current) drug therapy; Z88.1 Allergy status to other antibiotic agents; Z79.01 Long term (current) use of anticoagulants

== ENCOUNTER 2025-06-08 21:43 | Emergency (ER) | payer MEDICAID ==
[~2025-06-08] VITALS: Ht 188 cm; Wt 133.5 kg
[~2025-06-08 21:43] MED LIST changes: +GUAI600T78 PO; +PROM1SOL4 PO
[2025-06-08 21:47] VITALS: BP 148/109; PULSE 67; RESP 16; TEMP 97.3; O2SAT 96
[2025-06-08] MEDS ORDERED: RIVA20TA PO (22:12)
--- NOTE | 2025-06-08 22:36 | ED.PDOC ---
History of Present Illness HPI Comments 30 year old male presents to the ED for cc of medical refill onset last night. Pt has Hx of LVT on L thigh and has been prescribed Xeralto 20mg by PCP. Pt ran out of medication last night and is requesting refill. Pt denies associated symptoms of dizziness, headache, D/V/N at this time. No other associated symptoms, modifiers, recent injuries or sick contacts present at this time. Chief Complaint: Medical Clearance Time Seen by MD: 22:35 Primary Care Provider: OOA Reviewed Notes: Nurses Notes, Medications, Allergies Allergies: Coded Allergies: No Known Drug Allergy (Verified Allergy, Unknown, 07/26/19) Uncoded Allergies: UNKNOWN ANTIBIOTIC (Allergy, Unknown, 04/14/23) Home Meds Active Scripts Rivaroxaban (XARELTO) 20 Mg Tab, 1 TAB PO DAILY, #90 TAB 3 Refills Prov:GHANSHYAM COY MD 06/08/25 Guaifenesin (Mucinex) 600 Mg Tab, 1 TAB PO BID for 7 Days, #14 TAB 0 Refills Prov:HELENA SOLORZANO NP 06/01/25 Promethazine-Dm (Promethazine Dm 6.25-15 mg/5Ml) 1 Enedina Enedina, 5 ML PO TIDPRN PRN f or 10 Days, #150 ML 0 Refills Prov:HELENA SOLORZANO NP 06/01/25 Benzonatate (Benzonatate) 100 Mg Cap, 1 CAP PO TID PRN, #30 CAP Prov:HELENA SOLORZANO NP 06/01/25 Rivaroxaban (Xarelto Tablet) 20 Mg Tb, 20 MG PO BID, #40 TAB Prov:ERIN DOMINGUEZ 03/31/25 Acetaminophen (Acetaminophen) 500 Mg Tab, 500 MG PO Q4HPRN, #30 TAB 0 Refills Prov:BHUMI STALLINGS 12/16/24 Rivaroxaban (XARELTO) 15 Mg Tab, 15 MG PO BID for 30 Days, #60 TAB Prov:ARTEM RUIZ INSTRUMENT MECHANIC 08/03/24 Oseltamivir Phosphate (Tamiflu) 75 Mg Cap, 1 CAP PO BID for 5 Days, #10 CAP Prov:IVETTE SYKES INSTRUMENT MECHANIC 07/21/23 Metronidazole (Flagyl) 500 Mg Tab, 1 TAB PO TID for 7 Days, #21 TAB Prov:QUYNH CARBAJAL MD 06/18/23 Information Source: Patient Mode of Arrival: Ambulatory Severity: Moderate Timing: Hours Duration: Since onset Prehospital treatment: None Past Medical History PAST MEDICAL HISTORY: HTN Surgical History: Denies all surgeries Family History Family History: Unknown Social History Smoker: Non-Smoker Alcohol: Denies ETOH Use Drugs: Denies Drug Use Lives In: Home Constitutional: denies: chills, diaphoresis, fatigue, fever, malaise, sweats, weakness, others EENTM: denies: blurred vision, double vision, ear bleeding, ear discharge, ear drainage, ear pain, ear ringing, eye pain, eye redness, hearing loss, mouth pain, mouth swelling, nasal discharge, nose bleeding, nose congestion, nose pain, photophobia, tearing, throat pain, throat swelling, voice changes, others Respiratory: denies: cough, hemoptysis, orthopnea, SOB at rest, shortness of breath, SOB with excertion, stridor, wheezing, others Cardiovascular: denies: chest pain, dizzy spells, diaphoresis, Dyspnea on exertion, edema, irregular heart beat, left arm pain, lightheadedness, palpitations, PND, syncope, others Gastrointestinal: denies: abdomen distended, abdominal pain, blood streaked bowels, constipated, diarrhea, dysphagia, difficulty swallowing, hematemesis, melena, nausea, poor appetite, poor fluid intake, rectal bleeding, rectal pain, vomiting, others Genitourinary: denies: burning, dysuria, flank pain, frequency, hematuria, incontinence, penile discharge, penile sore, pain, testicle pain, testicle swelling, urgency, others Neurological: denies: dizziness, fainting, headache, left sided numbness, left sided weakness, numbness, paresthesia, pre-existing deficit, right sided num bness, right sided weakness, seizure, speech problems, tingling, tremors, weakness, others Musculoskeletal: denies: back pain, gout, joint pain, joint swelling, muscle pain, muscle stiffness, neck pain, others Integumetry: denies: bruises, change in color, change in hair/nails, dryness, laceration, lesions, lumps, rash, wounds, others Allergic/Immunocompromised: denies: Difficulty Healing, Frequent Infections, Hives, Itching, others Hematologic/Lymphatic: denies: anemia, blood clots, easy bleeding, easy bruising, swollen glands, others Endocrine: denies: excessive hunger, excessive sweating, excessive thirst, excessive urination, flushing, intolerance to cold, intolerance to heat, unexplained weight gain, unexplained weight loss, others Psychiatric: denies: anxiety, bipolar disorder, depression, hopeless, panic disorder, schizophrenia, sleepless, suicidal, others All Other Systems: Reviewed and Negative Physical Exam General Appearance: No Apparent Distress, Normal HEENT: Normal ENT Inspection, Pharynx Normal, TMs Normal Neck: Full Range of Motion, Non-Tender, Normal, Normal Inspection Respiratory: Chest Non-Tender, Lungs Clear, No Accessory Muscle Use, No Respiratory Distress, Normal Breath Sounds Cardiovascular: No Edema, No JVD, No Murmur, No Gallop, Normal Peripheral Pulses, Regular Rate/Rhythm Breast Exam: Deferred Gastrointestinal: No Organomegaly, Non Tender, No Pulsatile Mass, Normal Bowel Sounds, Soft Genitalia: Deferred Pelvic: Deferred Rectal: Deferred Extremities: No calf tenderness, Normal capillary refill, Normal inspection, Normal range of motion, Non-tender, No pedal edema Musculoskeletal : Apperance: Normal Neurologic: Alert, telescope maintenance II-XII nml as Tested, No Motor Deficits, Normal Affect, Normal Mood, No Sensory Deficits Cerebellar Function: Normal Reflexes: Normal Skin: Dry, Normal Color, Warm Lymphatic: No Adenopathy Was a procedure done? Was a procedure done?: No Differential Dx Considerations may include: Differential diagnosis includes but not limited to: DVT, pulmonary embolus, blood loss, hemorrhage, anemia and others X-Ray, Labs, Meds, VS Vital Signs Date Time Temp Pulse Resp B/P (MAP) Pulse Ox O2 Delivery O2 Flow Rate FiO2 06/08/25 22:38 Room Air* 0 21 06/08/25 21:47 97.3 67 16 148/109 96 97.3 Time of 1ST Reevaluation: 23:05 Reevaluation 1ST: Unchanged Patient Education/Counseling: Diagnosis, Treatment, Need For Follow Up Family Education/Counseling: No Family Present SEPSIS Sepsis Screen Date sepsis recognized/suspect: Jun 08, 2025 Time Sepsis recognized/suspect: 2148 Recent Procedure: No On Antibiotic Therapy: No Respiratory Rate >20: No Heart Rate >90: No Temp<36 C (96.8 F) or >38.3 C: No SBP <90 or MAP <65 mmHG: No New Acute Mental Status Change: No Is the patient on CPAP, BIPAP,: Yes Vital Signs Date Time Temp Pulse Resp B/P (MAP) Pulse Ox O2 Delivery O2 Flow Rate FiO2 06/08/25 22:38 Room Air* 0 21 06/08/25 21:47 97.3 67 16 148/109 96 97.3 Departure 1 Departure Time of Disposition: 23:55 Impression: Primary Impression: History of DVT (deep vein thrombosis) Disposition: HOME / SELF CARE / HOMELESS Condition: Stable Additional Instructions: Follow up with your primary physician Return to the ED for any worsening symptoms or concerns e-Prescriptions Rivaroxaban (XARELTO) 20 Mg Tab 1 TAB PO DAILY, #90 TAB 3 Refills Prov: GHANSHYAM COY MD 06/08/25 Discharged With: Self Critical Care Note Critical Care Time?: No Stability Stability form required: No Heart Score Heart Score: Heart Score Response (Comments) Value History N/A 0 EKG N/A 0 Age N/A 0 Risk Factors N/A 0 Troponin N/A 0 Total 0 I personally scribed for GHANSHYAM COY MD ([email or web address]) on 06/08/25 at 22:36. Electronically submitted by Nunu Fox ([email or web address]). GHANSHYAM COY MD Jun 08, 2025 22:36
== END 2025-06-08 22:45 | disposition home or self-care (01) ==
LOC: ER 21:43
DX: M79.652 Pain in left thigh (principal); I10 Essential (primary) hypertension; Z76.0 Encounter for issue of repeat prescription; Z86.718 Personal history of other venous thrombosis and embolism; Z88.1 Allergy status to other antibiotic agents; Z91.148 Patient's other noncompliance with medication regimen for other reason